=== PATIENT | female | born 1965 | race Caucasian/White ===

== ENCOUNTER 2017-04-04 06:00 | Day surgery (SDC) | payer OTHER ==
[~2017-04-04 06:00] MED LIST: A/F PAIN RELIE500 MG PO; KEFLEX500 MG PO; LEVAQUIN750 MG PO; NATURE-THROID65 MG PO; [UNRECOGNIZED DRUG - OTHER] MC
[2017-04-04] MEDS ORDERED: CODE1TAB37 PO (09:13)
[2017-04-04] MEDS ORDERED: DOXYCYCLINE HY100 MG PO (09:13)
== END 2017-04-04 13:15 | disposition home or self-care (01) ==
LOC: CIR.AMB 06:00
DX: D25.0 Submucous leiomyoma of uterus (principal); N84.0 Polyp of corpus uteri; D05.02 Lobular carcinoma in situ of left breast; N61.0 Mastitis without abscess; N61.1 Abscess of the breast and nipple; N95.0 Postmenopausal bleeding